=== PATIENT | female | born 1990 | race Two or more races ===

== ENCOUNTER 2023-04-10 19:19 | Emergency (ER) | payer OTHER ==
[~2023-04-10] VITALS: Ht 163.8 cm; Wt 71.7 kg
[2023-04-10] MEDS ORDERED: BACTRIM DS TAB1 EACH PO (23:39)
== END 2023-04-10 23:46 | disposition home or self-care (01) ==
LOC: ER 19:19
DX: N39.0 Urinary tract infection, site not specified (principal)